=== PATIENT | female | born 1995 | race American Indian/Alaskan Native ===

== ENCOUNTER 2017-04-03 15:31 | Emergency (ER) | payer SELFPAY | END 2017-04-03 15:45 | disposition left against medical advice (07) | LOC: ED 15:31 | DX: R10.9 Unspecified abdominal pain (principal); Z53.21 Procedure and treatment not carried out due to patient leaving prior to being seen by health care provider ==

== ENCOUNTER 2017-04-03 16:00 | Outpatient (CLI) | payer MEDICAID ==
[2017-04-03] MEDS ORDERED: LACTATED RINGERS 500 ML IV ONE (18:02)
[2017-04-03 18:40] LABS: Urine Drugs of Abuse Note Disclamer
[2017-04-03 18:53] LABS: Bilirubin,Urine NEG (Negative); Blood,Urine NEG (Negative); Ketones,Urine NEG (Negative); Leukocyte Esterase,Urine MOD (Negative); Mucus,Urine 2+ /HPF; Nitrite,Urine NEG (Negative); Protein,Urine <15 mg/dL mg/dL (Negative)
--- NOTE | 2017-04-03 19:52 | Ultrasound Report ---
FINAL REPORT PROCEDURE: US OB \T\gt; = 14 WEEKS FETUS TECHNIQUE: Real-time transabdominal sonography of the uterus, placenta, amniotic fluid, adnexa, and fetus was performed with image documentation. Measurements were obtained to determine age/size. M-mode Doppler was used to document heartbeat. CPT 80496 HISTORY: No care. COMPARISON: No prior studies are available for comparison. FINDINGS: ADDITIONAL GESTATION: None. GENERAL: IUP: Single living intrauterine . Position: Cephalic. Placental position: Fundal, grade 1, without previa. Amniotic fluid volume: 10.6 centimeters. MATERNAL: Uterus: Within normal limits. Cervical length: 3.5 cm. Internal Os: Closed. FETUS: Heart rate and rhythm: 123 beats per minute. anatomic survey: Normal. Stomach, kidneys, bladder, diaphragm, four-chamber heart, three-vessel cord and insertion, and spine seen. Limited visualization of the brain unremarkable. MEASUREMENTS: BPD: 8.28 centimeters, 33 weeks 1 day HC: 29.9 centimeters, 33 weeks 1 day AC: 28.3 centimeters, 32 weeks 2 days FL: 6.31 centimeters, 32 weeks 4 days Mean Gestational Age (composite criteria): 32 weeks 5 days Estimated Weight: 2003 grams. Interval growth: Appropriate. Estimated Due Date (earliest scan): 05/24/2017. IMPRESSION: Single intrauterine gestation at 32 weeks 5 days. Estimated due date: 05/24/2017. Normal survey with appropriate growth.
== END 2017-04-03 20:05 | disposition home or self-care (01) ==
LOC: TRG 16:00
PROVIDERS: ATTEND Obstetrics & Gynecology
DX: O47.03 False labor before 37 completed weeks of gestation, third trimester (principal); Z3A.32 32 weeks gestation of pregnancy
CPT/HCPCS: 59025; 76805; 80307; 81001

== ENCOUNTER 2021-09-22 18:37 | Emergency (ER) | payer MEDICAID ==
[2021-09-22 20:14] VITALS: BP 135/85
[2021-09-22 21:28] LABS: Basophils % (Auto) 0.3 % (0.0-1.8); Eosinophils # (Auto) 0.1 K/mm3 (0.0-0.4); Eosinophils % (Auto) 0.7 % (0.0-4.3); Hematocrit 42.8 % (30.3-42.9); Lymphocytes # (Auto) 1.2 K/mm3 (1.2-5.4); Lymphocytes % (Auto) 9.2 % (13.4-35.0); Mean Corpuscular HGB Conc 33 % (30-34); Mean Corpuscular Volume 95 fl (79-97); Monocytes # (Auto) 0.8 K/mm3 (0.0-0.8); Monocytes % (Auto) 6.2 % (0.0-7.3); Platelet Count 225 K/mm3 (140-440); Red Cell Distribution Width 13.2 % (13.2-15.2)
[2021-09-22 21:33] LABS: Alanine Aminotransferase 15 units/L (7-56); Albumin 4.6 g/dL (3.9-5); Blood Urea Nitrogen 10 mg/dL (7-17); Calcium 9.6 mg/dL (8.4-10.2); Hemolysis Index 7
[2021-09-22 21:35] LABS: BUN/Creatinine Ratio 17
[2021-09-22 22:36] LABS: Bacteria,Urine 1+ /HPF (Negative); Bilirubin,Urine NEG (Negative); Blood,Urine MOD (Negative); Color,Urine Yellow (Yellow); Mucus,Urine 3+ /HPF; Urobilinogen,Urine < 2.0 mg/dL (<2.0)
== END 2021-09-22 23:53 | disposition left against medical advice (07) ==
LOC: ED 18:37
DX: R10.9 Unspecified abdominal pain (principal); Z53.21 Procedure and treatment not carried out due to patient leaving prior to being seen by health care provider
CPT/HCPCS: 36415; 80053; 81001; 84703; 85025; 87086